=== PATIENT | male | born 1970 | race Caucasian/White ===

== ENCOUNTER 2017-06-12 15:57 | Inpatient (IN) ==
[2017-06-12] MEDS ORDERED: *HR* FentaNYL (PF) 100 MCG/2 ML VIAL IVP ONE (16:37)
[2017-06-12] MEDS ORDERED: Ondansetron ODT 4 MG TAB.RAPDIS SL ONE (16:37)
[2017-06-12] MEDS ORDERED: 0.9 % Sodium Chloride 1,000 ML IVC ONE (16:37)
--- NOTE | 2017-06-12 16:38 | Emergency Department Note ---
Disposition Clinical Impression: Gross hematuria, Supratherapeutic INR Disposition: Admitted As Inpatient Condition: Good Referrals: NONE,PCP [Primary Care Provider] - Forms: ED Satisfaction Letter Time of Disposition: 19:26 General Adult HPI - General Chief complaint: ED Urogenital-Male Stated complaint: Possible infection LUE, urinating blood Time Seen by Provider: 06/12/17 16:13 Source: patient Limitations: no limitations Nursing Notes Reviewed: Yes Vital Signs Reviewed: Yes - History of Present Illness HPI Narrative: Mr. 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 He reports only symptoms started approximately 2 days ago. Patient is currently on Coumadin therapy for his valve replacements. He reports that his low back pain is bilateral and sharp in nature. He denies any abdominal pain or change in his bowel movements. He reports that over the last 48 hours his urine has progressively diminished and has had difficulty urinating. He is reported progressively worsening gross hematuria as well. In regards to his left upper extremity, he reports that he is working on a shed at over last several weeks using sheets of metal. He reports that he has been gliding his left upper extremity across the causing several small lacerations. Over the last 2 days, he reports that he has been experiencing ecchymosis and edema about his left wrist and volar forearm. He reports that he has been unable to hold his coffee cup in the morning and has a decreased range of motion with his fingers. No recent infections and denies any fever at this time. No other complaints. Pain Scale: 6 - Related Data Home Medications Medication Instructions Recorded Confirmed Albuterol Sulfate [Ventolin Hfa] 8 gm IH Q6H PRN 03/26/15 03/24/17 Atorvastatin [Lipitor] 40 mg PO HS 03/26/15 03/24/17 Budesonide/Formoterol 160/4.5 1 puff IH DAILY 03/26/15 03/24/17 [Symbicort 160/4.5] Isosorbide MONOnitrate (24 HR) 60 mg PO DAILY 03/26/15 03/24/17 [Imdur] Metoprolol [Lopressor] 12.5 mg PO BID 03/26/15 03/24/17 Omeprazole [PriLOSEC] 20 mg PO DAILY 03/26/15 03/24/17 Oxazepam [Serax] 10 mg PO BID 03/26/15 03/24/17 Tamsulosin [Flomax] 0.4 mg PO DAILY 03/26/15 03/24/17 Vitamin B Complex [B Complex] 1 each PO DAILY 03/26/15 03/24/17 Warfarin [Coumadin] 5 mg PO QTUTHSA 03/26/15 03/24/17 Enoxaparin [Lovenox] 80 mg SQ Q12HR 03/24/17 03/24/17 Gabapentin [Neurontin] 600 mg PO BID 03/24/17 03/24/17 Montelukast [Singulair] 10 mg PO HS 03/24/17 03/24/17 Sertraline [Zoloft] 50 mg PO DAILY 03/24/17 03/24/17 Ubidecarenone [Co Q-10] 100 mg PO DAILY 03/24/17 03/24/17 traZODone [TraZODone] 50 mg PO HS 03/24/17 03/24/17 Allergies Allergy/AdvReac Type Severity Reaction Status Date / Time No Known Allergies Allergy Unverified 10/03/14 23:52 Review of Systems: Constitutional: No fever Vision: No blurred vision ENT: No rhinorrhea Respiratory: No cough Cardiovascular: No chest pain Allergic: No allergies : No blood in urine GI: No blood in stool Hematologic: No bruising Dermatologic: No skin rash Musculoskeletal: No pain in the extremities Neuro: No numbness of the extremities Past Medical History - Past Medical History Medical history: Reports: COPD, CVA, valvular heart disease Psychiatric history: Reports: anxiety, depression - Social History Smoking Status: Current every day smoker Smokeless Tobacco Status: Yes Alcohol use: Reports: none Drug use: Reports: none Physical Exam CONSTITUTIONAL: Alert and oriented X3 in no apparent distress HEAD: Normocephalic; atraumatic. RESP: NRD without use of accessory musculature, CTA b/l with no wheezes/rales/ rhonchi CARD: Regular rhythm, without murmurs, rubs, or gallop ABD: grossly normal, soft, non-tender, no guarding/distention/rigidity. surgical scars present BACK: no CVA tenderness SKIN: LUE: Multiple excoriations about left volar forearm, as well as approximately 3 cm x 4 cm area of ecchymosis and edema about the distal volar forearm. Fingers are held in slight flexion without any fusiform edema, tenderness about flexor compartment EXT: LUE is distally neurovascularlly intact PSYCH: appropriate mood/affect - General Limitations: no limitations General appearance: alert, in no apparent distress Course Course Narrative: Patient seen and examined at bedside. Vital signs were reviewed and normal. Will begin workup for low back pain the presence of gross hematuria to include a UA, abd/pelvic CT with and without, CBC, CMP, lipase and PT/INR. In addition , I am suspicious for flexor tenosynovitis and will order ESR, CRP, CPK and CT LUE with IV. Initial labs show mild leukocytosis of 12.3. Urine shows blood without infection. INR came back at 11.7. Recent history of Levaquin therapy and he reports not checking his INR routinely for the 2-3 weeks. Gave 10mg Vit K and Type and screen ordered. No evidence of active bleeding or hemodynamic instability. Scans pending at this time. Analagesic provided and patient is comfortable. 1915: Abdominal/pelvic CT demonstrates cholelithiasis without evidence of acute cholecystitis. No other acute changes were seen. There is evidence of renal stone passage even for changes seen on the ureters. CT of the upper extremity demonstrates no fluid collection, cellulitis, tenosynovitis. We will proceed with IV vancomycin for broad coverage and admit patient for supratherapeutic INR. 192: Spoke with Dr. Dotson except the patient for admission. I commended continuation of IVF 100 mL per hour. Patient understands and agrees to plan. Vital Signs Temperature 99.2 F 06/12/17 16:06 Pulse Rate 88 06/12/17 16:06 Respiratory Rate 18 06/12/17 16:06 Blood Pressure 134/87 06/12/17 16:06 O2 Sat by Pulse Oximetry 95 06/12/17 16:06 Temperature 99.2 F 06/12/17 16:06 Pulse Rate 88 06/12/17 16:06 Respiratory Rate 18 06/12/17 16:06 Blood Pressure 134/87 06/12/17 16:06 O2 Sat by Pulse Oximetry 95 06/12/17 16:06 Oxygen Delivery Oxygen Delivery Room Air Medical Decision Making - Lab Data Result diagrams: 06/12/17 16:44 06/12/17 16:44 Lab Results 06/12/17 06/12/17 06/12/17 Range/Units 16:20 16:44 16:44 WBC 12.4 H (4.3-11.1) K/mcL RBC 3.99 L (4.19-5.50) M/mcL Hgb 12.3 L (12.9-16.9) g/dL Hct 36.4 L (37.5-50.1) % MCV 91.2 (83.0-100.0) fL MCH 30.8 (28.0-33.3) pg MCHC 33.8 (31.6-35.5) g/dL RDW 14.4 (11.5-14.5) % Plt Count 199 (140-400) K/mcL MPV 12.8 H (9.4-12.4) fL Immature Gran % 0.3 (0-4) % Seg Neutrophils % 76.8 % Lymphocytes % 11.5 % Monocytes % 9.5 % Eosinophils % 1.6 % Basophils % 0.3 % Neutrophils # 9.5 H (1.6-8.9) K/mcL Lymphocytes # 1.4 (0.6-4.6) K/mcL Monocytes # 1.2 (0.0-1.3) K/mcL Eosinophils # 0.2 (0.0-0.6) K/mcL Basophils # 0.0 (0.0-0.2) K/mcL ESR 44 H (0-10) mm/hr PT (9.4-12.1) Seconds INR Sodium (136-145) mEq/L Potassium (3.5-5.1) mEq/L Chloride (98-107) mEq/L Carbon Dioxide (23-29) mEq/L BUN (6-20) mg/dL Creatinine (0.70-1.30) mg/dL Est GFR ( Amer) (> 60) Est GFR (Non-Af Amer) (> 60) BUN/Creatinine Ratio (6-26) Glucose (70-105) mg/dL Calculated Osmolality (280-300) Calcium (8.6-10.3) mg/dL Total Bilirubin (0.3-1.0) mg/dL AST (13-39) Units/L ALT (7-52) Units/L Alkaline Phosphatase (34-104) Units/L Creatine Kinase (30-223) Units/L C-Reactive Protein (Less than 10) mg/L Serum Total Protein (6.4-8.9) g/dL Albumin (3.5-5.7) g/dL Globulin (2.4-3.5) g/dL Albumin/Globulin Ratio (1.1-2.2) Lipase (11-82) Units/L Ur Specimen Adequacy Urine Color Red A (Yellow) Urine Clarity Cloudy A (Clear) Urine pH 6.0 (5.0-8.0) pH Units Ur Specific [place] 1.019 (1.010-1.025) Urine Protein 100 H (Neg-Trace) mg/dL Urine Glucose (UA) Normal (Normal) mg/dL Urine Ketones Negative (Negative) mg/dL Urine Blood Large H (Negative) Urine Nitrite Negative (Negative) Urine Bilirubin Negative (Negative) Urine Urobilinogen Normal (Normal) mg/dL Ur Leukocyte Esterase Negative (Negative) Blood Type Antibody Screen 06/12/17 06/12/17 06/12/17 Range/Units 16:44 16:44 18:38 WBC (4.3-11.1) K/mcL RBC (4.19-5.50) M/mcL Hgb (12.9-16.9) g/dL Hct (37.5-50.1) % MCV (83.0-100.0) fL MCH (28.0-33.3) pg MCHC (31.6-35.5) g/dL RDW (11.5-14.5) % Plt Count (140-400) K/mcL MPV (9.4-12.4) fL Immature Gran % (0-4) % Seg Neutrophils % % Lymphocytes % % Monocytes % % Eosinophils % % Basophils % % Neutrophils # (1.6-8.9) K/mcL Lymphocytes # (0.6-4.6) K/mcL Monocytes # (0.0-1.3) K/mcL Eosinophils # (0.0-0.6) K/mcL Basophils # (0.0-0.2) K/mcL ESR (0-10) mm/hr PT 132.8 H* (9.4-12.1) Seconds INR 11.7 H* Sodium 139 (136-145) mEq/L Potassium 4.0 (3.5-5.1) mEq/L Chloride 112 H (98-107) mEq/L Carbon Dioxide 24 (23-29) mEq/L BUN 10 (6-20) mg/dL Creatinine 0.92 (0.70-1.30) mg/dL Est GFR ( Amer) > 60 (> 60) Est GFR (Non-Af Amer) > 60 (> 60) BUN/Creatinine Ratio 11 (6-26) Glucose 120 H (70-105) mg/dL Calculated Osmolality 288 (280-300) Calcium 9.1 (8.6-10.3) mg/dL Total Bilirubin 0.8 (0.3-1.0) mg/dL AST 25 (13-39) Units/L ALT 23 (7-52) Units/L Alkaline Phosphatase 76 (34-104) Units/L Creatine Kinase 148 (30-223) Units/L C-Reactive Protein 56 H (Less than 10) mg/L Serum Total Protein 6.1 L (6.4-8.9) g/dL Albumin 3.5 (3.5-5.7) g/dL Globulin 2.6 (2.4-3.5) g/dL Albumin/Globulin Ratio 1.3 (1.1-2.2) Lipase 32 (11-82) Units/L Ur Specimen Adequacy Urine Color (Yellow) Urine Clarity (Clear) Urine pH (5.0-8.0) pH Units Ur Specific [place] (1.010-1.025) Urine Protein (Neg-Trace) mg/dL Urine Glucose (UA) (Normal) mg/dL Urine Ketones (Negative) mg/dL Urine Blood (Negative) Urine Nitrite (Negative) Urine Bilirubin (Negative) Urine Urobilinogen (Normal) mg/dL Ur Leukocyte Esterase (Negative) Blood Type A POSITIVE Antibody Screen NEGATIVE Attestation Statement - Attestation Attestation: I, Amrik Garcia DO, examined this patient [id number] and my medical decision-making was reviewed with Lloyd Caldwell PGY-1, Resident Physician. I agree with the documented findings, disposition and treatment plan as described except to the extent set forth below. Please see my progress notes for details.
[2017-06-12 16:56] LABS: Basophils % 0.3 %; Eosinophils # 0.2 K/mcL (0.0-0.6); Eosinophils % 1.6 %; Hematocrit 36.4 % (37.5-50.1); Hemoglobin 12.3 g/dL (12.9-16.9); Immature Granulocytes % 0.3 % (0-4); Lymphocytes # 1.4 K/mcL (0.6-4.6); Lymphocytes % 11.5 %; Mean Corpuscular HGB Conc 33.8 g/dL (31.6-35.5); Mean Corpuscular Hemoglobin 30.8 pg (28.0-33.3); Mean Corpuscular Volume 91.2 fL (83.0-100.0); Mean Platelet Volume 12.8 fL (9.4-12.4); Monocytes # 1.2 K/mcL (0.0-1.3); Monocytes % 9.5 %; Neutrophils # 9.5 K/mcL (1.6-8.9); Platelet Count 199 K/mcL (140-400); Red Blood Count 3.99 M/mcL (4.19-5.50); Red Cell Distribution Width 14.4 % (11.5-14.5); Segmented Neutrophils % 76.8 %
[2017-06-12 16:57] LABS: Bilirubin,Urine Negative (Negative); Blood,Urine Large (Negative); Clarity,Urine Cloudy (Clear); Glucose,Urine (UA) Normal (Normal); Ketones,Urine Negative (Negative); Leukocyte Esterase,Urine Negative (Negative); Nitrite,Urine Negative (Negative); Protein,Urine 100 mg/dL (Neg-Trace); Specific Gravity,Urine 1.019 (1.010-1.025); Urobilinogen,Urine Normal (Normal)
[2017-06-12 16:58] LABS: Color,Urine Red (Yellow)
[2017-06-12 17:14] LABS: INR 11.7; Prothrombin Time 132.8 Seconds (9.4-12.1)
[2017-06-12 17:21] LABS: Alanine Aminotransferase 23 Units/L (7-52); Albumin 3.5 g/dL (3.5-5.7); Albumin/Globulin Ratio 1.3 (1.1-2.2); Alkaline Phosphatase 76 Units/L (34-104); Aspartate Amino Transferase 25 Units/L (13-39); BUN/Creatinine Ratio 11 (6-26); Bilirubin,Total 0.8 mg/dL (0.3-1.0); Blood Urea Nitrogen 10 mg/dL (6-20); C-Reactive Protein 56 mg/L (Less than 10); Calcium 9.1 mg/dL (8.6-10.3); Carbon Dioxide 24 mEq/L (23-29); Chloride 112 mEq/L (98-107); Globulin 2.6 g/dL (2.4-3.5); Glucose 120 mg/dL (70-105); Lipase 32 Units/L (11-82); Osmolality,Calculated 288 (280-300); Sodium 139 mEq/L (136-145); Total Protein 6.1 g/dL (6.4-8.9); eGFR For African Americans > 60 (> 60); eGFR For Non-African Americans > 60 (> 60)
[2017-06-12 17:36] LABS: Creatine Kinase 148 Units/L (30-223)
--- NOTE | 2017-06-12 18:37 | Emergency Department Note ---
Disposition Clinical Impression: Gross hematuria, Supratherapeutic INR Disposition: Admitted As Inpatient Condition: Good Referrals: NONE,PCP [Non-Partnered Physician] - Forms: ED Satisfaction Letter Time of Disposition: 19:35 General Adult HPI - General Chief complaint: ED Urogenital-Male Stated complaint: Possible infection LUE, urinating blood Time Seen by Provider: 06/12/17 16:13 Source: patient Limitations: no limitations - History of Present Illness Pain Scale: 6 - Related Data Home Medications Medication Instructions Recorded Confirmed Albuterol Sulfate [Ventolin Hfa] 8 gm IH Q6H PRN 03/26/15 03/24/17 Atorvastatin [Lipitor] 40 mg PO HS 03/26/15 03/24/17 Budesonide/Formoterol 160/4.5 1 puff IH DAILY 03/26/15 03/24/17 [Symbicort 160/4.5] Isosorbide MONOnitrate (24 HR) 60 mg PO DAILY 03/26/15 03/24/17 [Imdur] Metoprolol [Lopressor] 12.5 mg PO BID 03/26/15 03/24/17 Omeprazole [PriLOSEC] 20 mg PO DAILY 03/26/15 03/24/17 Oxazepam [Serax] 10 mg PO BID 03/26/15 03/24/17 Tamsulosin [Flomax] 0.4 mg PO DAILY 03/26/15 03/24/17 Vitamin B Complex [B Complex] 1 each PO DAILY 03/26/15 03/24/17 Warfarin [Coumadin] 5 mg PO QTUTHSA 03/26/15 03/24/17 Enoxaparin [Lovenox] 80 mg SQ Q12HR 03/24/17 03/24/17 Gabapentin [Neurontin] 600 mg PO BID 03/24/17 03/24/17 Montelukast [Singulair] 10 mg PO HS 03/24/17 03/24/17 Sertraline [Zoloft] 50 mg PO DAILY 03/24/17 03/24/17 Ubidecarenone [Co Q-10] 100 mg PO DAILY 03/24/17 03/24/17 traZODone [TraZODone] 50 mg PO HS 03/24/17 03/24/17 Allergies Allergy/AdvReac Type Severity Reaction Status Date / Time No Known Allergies Allergy Unverified 10/03/14 23:52 Past Medical History - Past Medical History Medical history: Reports: COPD, CVA, valvular heart disease Psychiatric history: Reports: anxiety, depression - Social History Smoking Status: Current every day smoker Smokeless Tobacco Status: Yes Alcohol use: Reports: none Drug use: Reports: none Physical Exam - General Limitations: no limitations General appearance: alert, in no apparent distress Course Vital Signs Temperature 99.2 F 06/12/17 16:06 Pulse Rate 88 06/12/17 16:06 Respiratory Rate 18 06/12/17 16:06 Blood Pressure 134/87 06/12/17 16:06 O2 Sat by Pulse Oximetry 95 06/12/17 16:06 Temperature 99.2 F 06/12/17 16:06 Pulse Rate 88 06/12/17 16:06 Respiratory Rate 18 06/12/17 16:06 Blood Pressure 134/87 06/12/17 16:06 O2 Sat by Pulse Oximetry 95 06/12/17 16:06 Oxygen Delivery Oxygen Delivery Room Air Medical Decision Making - Lab Data Result diagrams: 06/12/17 16:44 06/12/17 16:44 Lab Results 06/12/17 06/12/17 06/12/17 Range/Units 16:20 16:44 16:44 WBC 12.4 H (4.3-11.1) K/mcL RBC 3.99 L (4.19-5.50) M/mcL Hgb 12.3 L (12.9-16.9) g/dL Hct 36.4 L (37.5-50.1) % MCV 91.2 (83.0-100.0) fL MCH 30.8 (28.0-33.3) pg MCHC 33.8 (31.6-35.5) g/dL RDW 14.4 (11.5-14.5) % Plt Count 199 (140-400) K/mcL MPV 12.8 H (9.4-12.4) fL Immature Gran % 0.3 (0-4) % Seg Neutrophils % 76.8 % Lymphocytes % 11.5 % Monocytes % 9.5 % Eosinophils % 1.6 % Basophils % 0.3 % Neutrophils # 9.5 H (1.6-8.9) K/mcL Lymphocytes # 1.4 (0.6-4.6) K/mcL Monocytes # 1.2 (0.0-1.3) K/mcL Eosinophils # 0.2 (0.0-0.6) K/mcL Basophils # 0.0 (0.0-0.2) K/mcL ESR 44 H (0-10) mm/hr PT (9.4-12.1) Seconds INR Sodium (136-145) mEq/L Potassium (3.5-5.1) mEq/L Chloride (98-107) mEq/L Carbon Dioxide (23-29) mEq/L BUN (6-20) mg/dL Creatinine (0.70-1.30) mg/dL Est GFR ( Amer) (> 60) Est GFR (Non-Af Amer) (> 60) BUN/Creatinine Ratio (6-26) Glucose (70-105) mg/dL Calculated Osmolality (280-300) Calcium (8.6-10.3) mg/dL Total Bilirubin (0.3-1.0) mg/dL AST (13-39) Units/L ALT (7-52) Units/L Alkaline Phosphatase (34-104) Units/L Creatine Kinase (30-223) Units/L C-Reactive Protein (Less than 10) mg/L Serum Total Protein (6.4-8.9) g/dL Albumin (3.5-5.7) g/dL Globulin (2.4-3.5) g/dL Albumin/Globulin Ratio (1.1-2.2) Lipase (11-82) Units/L Ur Specimen Adequacy Urine Color Red A (Yellow) Urine Clarity Cloudy A (Clear) Urine pH 6.0 (5.0-8.0) pH Units Ur Specific [place] 1.019 (1.010-1.025) Urine Protein 100 H (Neg-Trace) mg/dL Urine Glucose (UA) Normal (Normal) mg/dL Urine Ketones Negative (Negative) mg/dL Urine Blood Large H (Negative) Urine Nitrite Negative (Negative) Urine Bilirubin Negative (Negative) Urine Urobilinogen Normal (Normal) mg/dL Ur Leukocyte Esterase Negative (Negative) Blood Type Antibody Screen 06/12/17 06/12/17 06/12/17 Range/Units 16:44 16:44 18:38 WBC (4.3-11.1) K/mcL RBC (4.19-5.50) M/mcL Hgb (12.9-16.9) g/dL Hct (37.5-50.1) % MCV (83.0-100.0) fL MCH (28.0-33.3) pg MCHC (31.6-35.5) g/dL RDW (11.5-14.5) % Plt Count (140-400) K/mcL MPV (9.4-12.4) fL Immature Gran % (0-4) % Seg Neutrophils % % Lymphocytes % % Monocytes % % Eosinophils % % Basophils % % Neutrophils # (1.6-8.9) K/mcL Lymphocytes # (0.6-4.6) K/mcL Monocytes # (0.0-1.3) K/mcL Eosinophils # (0.0-0.6) K/mcL Basophils # (0.0-0.2) K/mcL ESR (0-10) mm/hr PT 132.8 H* (9.4-12.1) Seconds INR 11.7 H* Sodium 139 (136-145) mEq/L Potassium 4.0 (3.5-5.1) mEq/L Chloride 112 H (98-107) mEq/L Carbon Dioxide 24 (23-29) mEq/L BUN 10 (6-20) mg/dL Creatinine 0.92 (0.70-1.30) mg/dL Est GFR ( Amer) > 60 (> 60) Est GFR (Non-Af Amer) > 60 (> 60) BUN/Creatinine Ratio 11 (6-26) Glucose 120 H (70-105) mg/dL Calculated Osmolality 288 (280-300) Calcium 9.1 (8.6-10.3) mg/dL Total Bilirubin 0.8 (0.3-1.0) mg/dL AST 25 (13-39) Units/L ALT 23 (7-52) Units/L Alkaline Phosphatase 76 (34-104) Units/L Creatine Kinase 148 (30-223) Units/L C-Reactive Protein 56 H (Less than 10) mg/L Serum Total Protein 6.1 L (6.4-8.9) g/dL Albumin 3.5 (3.5-5.7) g/dL Globulin 2.6 (2.4-3.5) g/dL Albumin/Globulin Ratio 1.3 (1.1-2.2) Lipase 32 (11-82) Units/L Ur Specimen Adequacy Urine Color (Yellow) Urine Clarity (Clear) Urine pH (5.0-8.0) pH Units Ur Specific [place] (1.010-1.025) Urine Protein (Neg-Trace) mg/dL Urine Glucose (UA) (Normal) mg/dL Urine Ketones (Negative) mg/dL Urine Blood (Negative) Urine Nitrite (Negative) Urine Bilirubin (Negative) Urine Urobilinogen (Normal) mg/dL Ur Leukocyte Esterase (Negative) Blood Type A POSITIVE Antibody Screen NEGATIVE Attestation Statement - Attestation Attestation: I, Amrik Garcia DO, examined this patient [id number] and my medical decision-making was reviewed with Lloyd Caldwell PGY-1 Resident Physician. I agree with the documented findings, disposition and treatment plan as described except to the extent set forth below. Please see my progress notes for details. 39-year-old male presents to emergency room with complaint of left arm pain swelling and blood in his urine. 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 Patient is chronically disabled secondary to this. He has been working on trying to build the carotids. He said last several days has noticed generalized malaise muscle aches some swelling across his entire body as well as dark colored urine that he thought was blood. Patient denies any trauma or injury. He has not fallen or injured his arm. He is concerned, liver swelling and redness to the left arm is different from the right. He has appropriate palpable radial pulses are symmetric bilaterally. He does have discomfort with extension of the elbow and the fingers of the left hand. There is no gross deformity or injury noted at this point. Sensation is intact and symmetrical bilaterally. Patient's lungs are clear heart is regular abdomen is soft nontender nondistended no guarding no rigidity no peritoneal symptoms. Imaging modalities at the left upper extremity as well as the abdomen will be ordered at this point. No antibiotic regimen will be started this time. INR will be collected secondary to the patient's history of being on blood thinners. Vital signs remain stable. Detailed evaluation antibiotics were started as needed. Patient is otherwise currently stable. Lungs are clear heart is regular. Disposition pending the full workup and treatment course. Expect the patient will most likely need admission secondary to the hematuria and left zahra Ellison's clinical findings are not concerning at that point. See detailed documentation of the physical exam, medical intervention, medical decision-making and disposition in the resident physician's note. 1835 Patient has an INR greater than 11 at this point. Vitamin K will be started. CT imaging left upper extremity and abdomen are still pending at this point. Labs do show slight elevated white count and neutrophil. Otherwise patient is clinically stable. Disposition will be admission the hospital for stabilization of his elevated INR. No critical care applied to this patient's treatment course at this time 1930 Patient is clinically stable this time. CT imaging of the arm is concerning for possible cellulitis. Antibiotic regimen started in emergency room and vancomycin. Patient was given vitamin K. He will be admitted for further evaluation and management of the hypocoagulable state secondary to the INR. Patient is otherwise currently stable with no acute signs of GI bleed or bleeding diaphysis at this time. Hospitalist was paged no other recommendations are concerning this time.
[2017-06-12] MEDS: 0.9 % Sodium Chloride 1,000 ML IVC SCH (20:18)
[2017-06-12] MEDS ORDERED: *HR* HYDROcodone/Acet 5/325 mg TABLET PO PRN (20:36)
[2017-06-12] MEDS ORDERED: Acetaminophen 325 MG TABLET PO PRN (20:36)
[2017-06-12] MEDS ORDERED: Naloxone 0.4 MG/ML INJ IVP PRN (20:36)
--- NOTE | 2017-06-12 20:49 | Internal Med History&Physical ---
Date of Encounter: 06/12/17 Time of Encounter: 20:00 Internal Medicine - H&P: HPI Chief complaint: Hematuria and left forearm swelling Admitted From: Home Plans for Post Hospital Care: Home History of present illness: Mr. Dumont is a 47 year old male presented to ER for hematuria and left forearm swelling for 2 days. Past medical history is significant for S/P aortic and mitral replacement on Coumadin, history of CVA. Patient said she has noticed that gross hematuria since 2 days ago. With bilateral lower back pain. The hematuria is thick earlier and getting school office manager now. Patient denies fever, nausea, or vomiting. Patient also complains left arm swelling and pain since 2 days ago, no skin redness or warmth. The pain is 2 /10. There is some bruise on the wrist area. In the emergency room, he was found supratherapeutic INR at 11.7. CT abdominal and left forearm unremarkable. Patient was admitted for further management. Past Med Surg Social Fam HX - Past Medical History Medical history: COPD, CVA, valvular heart disease Psychiatric history: anxiety, depression - Social History Smoking Status: Current every day smoker Smokeless Tobacco Status: Yes Alcohol use: none Drug use: none - Family History Mother History Unknown: Yes Internal Medicine - H&P: Meds Albuterol Sulfate [Ventolin Hfa] 8 gm IH Q6H PRN 03/26/15 [History] Atorvastatin [Lipitor] 40 mg PO HS 03/26/15 [History] Budesonide/Formoterol 160/4.5 [Symbicort 160/4.5] 1 puff IH DAILY 03/26/15 [ History] Isosorbide MONOnitrate (24 HR) [Imdur] 60 mg PO DAILY 03/26/15 [History] Metoprolol [Lopressor] 12.5 mg PO BID 03/26/15 [History] Omeprazole [PriLOSEC] 20 mg PO DAILY 03/26/15 [History] Oxazepam [Serax] 10 mg PO BID 03/26/15 [History] Tamsulosin [Flomax] 0.4 mg PO DAILY 03/26/15 [History] Vitamin B Complex [B Complex] 1 each PO DAILY 03/26/15 [History] Warfarin [Coumadin] 5 mg PO QTUTHSA 03/26/15 [History] Enoxaparin [Lovenox] 80 mg SQ Q12HR 03/24/17 [History] Gabapentin [Neurontin] 600 mg PO BID 03/24/17 [History] Montelukast [Singulair] 10 mg PO HS 03/24/17 [History] Sertraline [Zoloft] 50 mg PO DAILY 03/24/17 [History] Ubidecarenone [Co Q-10] 100 mg PO DAILY 03/24/17 [History] traZODone [TraZODone] 50 mg PO HS 03/24/17 [History] 3 Allergy/AdvReac Type Severity Reaction Status Date / Time No Known Allergies Allergy Unverified 10/03/14 23:52 All Systems PM: A 10-system review of systems was performed and is negative for pertinent findings except as documented above in the HPI. - Constitutional Vitals: Temp Pulse Resp BP Pulse Ox 99.2 F 88 18 134/87 95 06/12/17 16:06 06/12/17 16:06 06/12/17 16:06 06/12/17 16:06 06/12/17 16:06 General appearance: Present: A&O X 3, no acute distress, answers questions appropriately - Head Head exam: Present: atraumatic, normocephalic - Eye Eye exam: Present: PERRL, conjuntiva pink, sclera anicteric Pupils: Present: PERRL - Neck Neck exam general surgery: Present: supple, trachea midline. Absent: lymphadenopathy - Respiratory Respiratory exam: Present: CTAB. Absent: accessory muscle use, rales, rhonchi, wheezes - Cardiovascular Cardiovascular exam: Present: RRR, +S1, +S2. Absent: diastolic murmur, gallop, rubs, systolic murmur - GI/Abdominal GI/Abdominal exam: Present: normal bowel sounds, soft, no peritoneal signs. Absent: distended, tenderness - Extremities Exam Extremities exam: Present: warm, radial pulses palpable and symmetrical. Absent : calf tenderness, cyanotic, pedal edema Additional comments: Left forearm swelling, tender, no obvious skin redness. Radical pulse 2+. Capillary refill on the nail bed wnl. - Neurological Exam Neurological exam: Present: CN II-XII intact, oriented X3, no focal deficits. Absent: pronater drift, facial droop, speech deficit - Skin Skin exam: Present: dry, intact Internal Med - H&P Results - Labs CBC & Chem 7: 06/12/17 16:44 06/12/17 16:44 Labs: Short CBC 06/12/17 Range/Units 16:44 WBC 12.4 H (4.3-11.1) K/mcL Hgb 12.3 L (12.9-16.9) g/dL Hct 36.4 L (37.5-50.1) % Plt Count 199 (140-400) K/mcL Neutrophils # 9.5 H (1.6-8.9) K/mcL BMP 06/12/17 16:44 Sodium 139 Potassium 4.0 Chloride 112 H Carbon Dioxide 24 BUN 10 Creatinine 0.92 Glucose 120 H Calcium 9.1 Liver Function 06/12/17 Range/Units 16:44 Total Bilirubin 0.8 (0.3-1.0) mg/dL AST 25 (13-39) Units/L ALT 23 (7-52) Units/L Alkaline Phosphatase 76 (34-104) Units/L Albumin 3.5 (3.5-5.7) g/dL Urine 06/12/17 Range/Units 16:20 Urine Color Red A (Yellow) Urine Clarity Cloudy A (Clear) Urine pH 6.0 (5.0-8.0) pH Units Ur Specific [place] 1.019 (1.010-1.025) Urine Protein 100 H (Neg-Trace) mg/dL Urine Glucose (UA) Normal (Normal) mg/dL - Impressions ITS Impressions Abdomen/Pelvis CT 06/12/17 16:33 IMPRESSION: Cholelithiasis. No evidence of acute cholecystitis. No renal or ureteral stone. Mild urothelial thickening and inflammation bilaterally, slightly greater on the right. No filling defect noted on excretory phase. Findings may be related to recent passage of stone or infection. Correlate with urinalysis. D/ / Lela Obrien MD / Lela Obrien MD Interpreting Provider: Lela Obrien MD Upper Extremity CT 06/12/17 16:35 IMPRESSION: 1. Mild subcutaneous edema involving the soft tissues of the forearm which is nonspecific. No organized drainable fluid collection identified. 2. Likely minimal fluid within the flexor tendon sheath. No definite tenosynovitis within limits of CT examination. 3. No acute osseous abnormality. D/ / Eulogio Meek MD / Eulogio Meek MD Interpreting Provider: Eulogio Meek MD - Assessment and plan (1) Pain and swelling of left forearm Current Visit: Yes Status: Acute Assessment and plan: Patient has pain and the swelling of left forearm. There is bruise on the wrist area. Pt has supratherapeutic INR. Consider inner bleeding. CT forearm shows no obvious hematoma. - Closely monitor pt, if symptoms getting worse, need to r/o compartment syndrome. At this point, pulse and capiliary refill is fine and pt move fingers w/o limitation. - Will correct supratherapeutic INR with vit K and FFP. Closely f/u INR level. - Consider orthopedic consult if symptoms persist. (2) DVT prophylaxis Current Visit: Yes Status: Acute Assessment and plan: Pt is on coumadin. INR is supratherapeutic (3) Gross hematuria Current Visit: Yes Status: Acute Assessment and plan: Pt has gross hematuria with supratherapeutic INR. CT abd shows no renal stone but suspect recent passed stone. UA shows negative for UTI. - Correct supratherapeutic INR - Hematuria improved now, H/H stable, cont closely monitor pt. (4) Supratherapeutic INR Current Visit: Yes Status: Acute Assessment and plan: Pt is on coumadin for valve replacement. Hold coumadin, FFP and vit K. F/U INR levels. (5) H/O mitral valve replacement Current Visit: No Status: Acute (6) H/O mitral valve repair Current Visit: No Status: Acute - Time Spent With Patient Total time spent is greater than 50% in coordination of care (as documented) at patient's floor/unit and/or counseling patient: 40 min Greater than 35 minutes
[2017-06-12] MEDS: traZODone 50 MG TABLET PO SCH (21:45)
[2017-06-13] MEDS: traZODone 50 MG TABLET PO SCH (01:07)
[2017-06-13] MEDS: Gabapentin 300 MG CAPSULE PO SCH ×3 (01:08→21:36)
[2017-06-13] MEDS: Nicotine 21 MG PATCH.TD24 TD SCH ×2 (01:10→09:18)
[2017-06-13 05:17] LABS: Basophils % 0.4 %; Eosinophils # 0.2 K/mcL (0.0-0.6); Eosinophils % 2.5 %; Hematocrit 32.8 % (37.5-50.1); Hemoglobin 10.9 g/dL (12.9-16.9); Immature Granulocytes % 0.4 % (0-4); Lymphocytes # 1.2 K/mcL (0.6-4.6); Lymphocytes % 14.5 %; Mean Corpuscular HGB Conc 33.2 g/dL (31.6-35.5); Mean Corpuscular Hemoglobin 30.6 pg (28.0-33.3); Mean Corpuscular Volume 92.1 fL (83.0-100.0); Mean Platelet Volume 12.5 fL (9.4-12.4); Monocytes # 0.9 K/mcL (0.0-1.3); Monocytes % 10.9 %; Neutrophils # 5.9 K/mcL (1.6-8.9); Nucleated Red Blood Cells 0.2 /100 WBC (0); Platelet Count 167 K/mcL (140-400); Red Blood Count 3.56 M/mcL (4.19-5.50); Red Cell Distribution Width 14.4 % (11.5-14.5); Segmented Neutrophils % 71.3 %
[2017-06-13 05:24] LABS: INR 1.4; Prothrombin Time 15.1 Seconds (9.4-12.1)
[2017-06-13 05:35] LABS: BUN/Creatinine Ratio 14 (6-26); Blood Urea Nitrogen 9 mg/dL (6-20); Calcium 8.6 mg/dL (8.6-10.3); Carbon Dioxide 26 mEq/L (23-29); Chloride 110 mEq/L (98-107); Glucose 88 mg/dL (70-105); Magnesium 1.7 mg/dL (1.6-2.6); Osmolality,Calculated 294 (280-300); Potassium 3.7 mEq/L (3.5-5.1); Sodium 143 mEq/L (136-145); eGFR For African Americans > 60 (> 60); eGFR For Non-African Americans > 60 (> 60)
[2017-06-13] MEDS: Budesonide/Formoterol 160/4.5 MDI IH SCH (07:57)
[2017-06-13] MEDS: Isosorbide MONOnitrate (24 HR) 60 MG TAB.ER.24H PO SCH (09:17)
[2017-06-13] MEDS: 0.9 % Sodium Chloride 1,000 ML IVC SCH ×2 (09:18→21:35)
[2017-06-13] MEDS ORDERED: Magnesium Oxide 400 MG TABLET PO ONE (12:37)
--- NOTE | 2017-06-13 13:16 | Internal Med Progress Note ---
Date of Encounter: 06/13/17 Time of Encounter: 13:14 - Assessment and plan (1) Gross hematuria Current Visit: Yes Status: Acute Assessment and plan: This resolved after FFP's and vitamin K. We will monitor tonight and possibly discharge tomorrow. (2) H/O mitral valve repair Current Visit: No Status: Acute Assessment and plan: INR is subtherapeutic now. Patient has mechanical valve. Will need to be put on Lovenox therapeutic dose with bridging to Coumadin. He has no further hematuria now. We will monitor. (3) Supratherapeutic INR Current Visit: Yes Status: Acute Assessment and plan: patient is now subtherapeutic after FFP's and vitamin K. (4) Pain and swelling of left forearm Current Visit: Yes Status: Acute Assessment and plan: Resolved. No active bleeding seen on CAT scan. We will monitor. (5) DVT prophylaxis Current Visit: Yes Status: Acute Assessment and plan: will place the patient on Lovenox therapeutic dose with Coumadin bridge and - Time Spent With Patient Total time spent is greater than 50% in coordination of care (as documented) at patient's floor/unit and/or counseling patient: - Subjective Interval history: Patient was seen and examined. No acute events. Hematuria resolved. Patient has supratherapeutic INR which caused hematuria. Recently was on antibiotics and just finished a couple days ago. He is not sure which antibiotics he was on but he says he was prescribed by his PCP due to tendinitis. - Constitutional Vitals: Temp Pulse Resp BP Pulse Ox 97.4 F L 66 16 115/76 97 06/13/17 10:47 06/13/17 10:47 06/13/17 10:47 06/13/17 10:47 06/13/17 10:47 General appearance: Present: A&O X 3, no acute distress, answers questions appropriately Exam: GEN: NAD CVS: RRR. S1, S2, No m/r/g RESP: CTAB ABD: Soft, NT, ND, +BS EXT: No edema. 2+ DP. No rashes NEURO: Nonfocal Internal Medicine: Result - Labs CBC & Chem 7: 06/13/17 04:52 06/13/17 04:52 Labs: Short CBC 06/13/17 Range/Units 04:52 WBC 8.3 (4.3-11.1) K/mcL Hgb 10.9 L (12.9-16.9) g/dL Hct 32.8 L (37.5-50.1) % Plt Count 167 (140-400) K/mcL Neutrophils # 5.9 (1.6-8.9) K/mcL BMP 06/13/17 04:52 Sodium 143 Potassium 3.7 Chloride 110 H Carbon Dioxide 26 BUN 9 Creatinine 0.64 L Glucose 88 Calcium 8.6 - ABG Interpretation ABG results: PT/INR, D-dimer PT 15.1 Seconds (9.4-12.1) H D 06/13/17 04:52 Consult Discharge Plan - Plan Referrals: Krystal Youssef, [employer] D[employer]ER TENDER [Primary Care Provider] -
[2017-06-13] MEDS ORDERED: Warfarin perPT PO PRN (18:00)
[2017-06-13] MEDS ORDERED: *HR* Warfarin 5 MG TABLET PO SCH (18:00)
[2017-06-13] MEDS: *HR* Enoxaparin 80 MG/0.8 ML SYRINGE SQ SCH (18:01)
[2017-06-13] MEDS ORDERED: Benzocaine 20% 9 GM GEL..GRAM. TP PRN (21:55)
[2017-06-14 04:09] LABS: Basophils % 0.4 %; Eosinophils # 0.2 K/mcL (0.0-0.6); Eosinophils % 2.8 %; Hematocrit 30.9 % (37.5-50.1); Immature Granulocytes % 0.1 % (0-4); Lymphocytes # 1.4 K/mcL (0.6-4.6); Lymphocytes % 20.7 %; Mean Corpuscular HGB Conc 32.4 g/dL (31.6-35.5); Mean Corpuscular Hemoglobin 29.8 pg (28.0-33.3); Mean Platelet Volume 12.3 fL (9.4-12.4); Monocytes # 0.7 K/mcL (0.0-1.3); Monocytes % 10.3 %; Neutrophils # 4.5 K/mcL (1.6-8.9); Platelet Count 161 K/mcL (140-400); Red Blood Count 3.36 M/mcL (4.19-5.50); Red Cell Distribution Width 14.2 % (11.5-14.5); Segmented Neutrophils % 65.7 %
[2017-06-14 04:13] LABS: INR 1.2; Prothrombin Time 12.8 Seconds (9.4-12.1)
[2017-06-14 04:31] LABS: BUN/Creatinine Ratio 16 (6-26); Blood Urea Nitrogen 11 mg/dL (6-20); Calcium 8.3 mg/dL (8.6-10.3); Carbon Dioxide 26 mEq/L (23-29); Chloride 110 mEq/L (98-107); Glucose 89 mg/dL (70-105); Magnesium 1.7 mg/dL (1.6-2.6); Osmolality,Calculated 287 (280-300); Potassium 4.2 mEq/L (3.5-5.1); Sodium 139 mEq/L (136-145); eGFR For African Americans > 60 (> 60); eGFR For Non-African Americans > 60 (> 60)
[2017-06-14] MEDS: 0.9 % Sodium Chloride 1,000 ML IVC SCH (05:21)
[2017-06-14] MEDS: *HR* Enoxaparin 80 MG/0.8 ML SYRINGE SQ SCH (05:21)
[2017-06-14 07:16] VITALS: BP 139/78
[2017-06-14] MEDS: Budesonide/Formoterol 160/4.5 MDI IH SCH (07:35)
--- NOTE | 2017-06-14 08:11 | Discharge Summary ---
- NOTES TO OUTPATIENT PROVIDER Notes to Outpatient Provider: Patient had his INR reversed. Hematuria resolved. Due to mechanical valves, I started him on Lovenox and discharged him on it till his INR is therapeutic Date of Encounter: 06/14/17 Time of Encounter: 08:04 - Discharge Diagnosis (1) Gross hematuria Priority: Primary Status: Acute (2) H/O mitral valve repair Priority: Secondary Status: Acute (3) Supratherapeutic INR Priority: Primary Status: Acute (4) Pain and swelling of left forearm Priority: Primary Status: Acute Hospital course: Mr. Dumont is a 47 year old male presented to ER for hematuria and left forearm swelling for 2 days. Past medical history is significant for S/P mechanical aortic and mitral replacement on Coumadin, history of CVA. On initial evaluation the patient's INR was noted to be 11.7. Due to the hematuria he was given FFP's and vitamin K has INR went down to 1.4. His hematuria resolved by the following day. Hemoglobin remained around 10. Due to the fact that the patient has mechanical aortic and mitral valves I ended up starting the patient on a heparin drip after his hematuria had resolved and eventually discharged him on Lovenox with Coumadin bridging. It is unclear why the patient's INR was this high however he did mention that he was on antibiotics prescribed by his PCP and he finished a course of treatment 2 days prior to this admission for some tendinitis in the upper extremities. The patient was not sure which antibiotics it was. He was discharged in a stable condition on 06/14. He is to have INR checked in 3 days on 06/17. He was given a prescription for Lovenox for the next 7 days. INR on day of discharge was 1.2. CT abdomen and pelvis ruled out any acute pathology. His left upper extremity swelling had resolved by the next morning when I started seeing him. He did have a CT left upper extremity in the ED which showed some soft tissue swelling in the forearm but no fluid collection. - Time Spent with Patient Total time spent providing and/or coordinating discharge services: - Discharge Medications Prescriptions: Enoxaparin [Lovenox] 80 mg SQ Q12HR #14 syringe Home Medications: Albuterol Sulfate [Ventolin Hfa] 2 puff IH Q6H PRN 03/26/15 [History] Atorvastatin [Lipitor] 40 mg PO HS 03/26/15 [History] Budesonide/Formoterol 160/4.5 [Symbicort 160/4.5] 1 puff IH DAILY 03/26/15 [ History] Isosorbide MONOnitrate (24 HR) [Imdur] 60 mg PO DAILY 03/26/15 [History] Metoprolol [Lopressor] 12.5 mg PO BID 03/26/15 [History] Omeprazole [PriLOSEC] 20 mg PO DAILY 03/26/15 [History] Oxazepam [Serax] 10 mg PO BID 03/26/15 [History] Tamsulosin [Flomax] 0.4 mg PO DAILY 03/26/15 [History] Vitamin B Complex [B Complex] 1 each PO DAILY 03/26/15 [History] Warfarin [Coumadin] 5 mg PO DAILY 03/26/15 [History] Gabapentin [Neurontin] 600 mg PO BID 03/24/17 [History] Montelukast [Singulair] 10 mg PO HS 03/24/17 [History] Sertraline [Zoloft] 50 mg PO DAILY 03/24/17 [History] Ubidecarenone [Co Q-10] 100 mg PO DAILY 03/24/17 [History] traZODone [TraZODone] 50 mg PO HS 03/24/17 [History] Aspirin [Lo-Dose Aspirin EC] 81 mg PO DAILY 06/13/17 [History] Enoxaparin [Lovenox] 80 mg SQ Q12HR #14 syringe 06/14/17 [Rx] Allergies/Adverse Reactions: 3 Allergy/AdvReac Type Severity Reaction Status Date / Time No Known Allergies Allergy Unverified 10/03/14 23:52 Date of admission: 06/12/17 23:11 Primary care physician: Krystal Youssef CNP - Constitutional Vitals: Temp Pulse Resp BP Pulse Ox 98.5 F 65 22 139/78 95 06/14/17 07:06 06/14/17 07:06 06/14/17 07:06 06/14/17 07:06 06/13/17 19:26 General appearance: Present: A&O X 3, no acute distress, answers questions appropriately Exam: GEN: NAD CVS: RRR. S1, S2, No m/r/g RESP: CTAB ABD: Soft, NT, ND, +BS EXT: No edema. 2+ DP. No rashes NEURO: Nonfocal - Patient Status Disposition: Home, Self-Care Condition: Fair Overall status at discharge: patient is progressing back to baseline - Discharge Instructions Follow Up With: Krystal Youssef CNP [Primary Care Provider] - 06/21/17 1:00 pm (Please follow up as schedule...) - Diet and Activity Activity: increase activity as tolerated Diet: regular diet
[2017-06-14] MEDS: Gabapentin 300 MG CAPSULE PO SCH (09:12)
[2017-06-14] MEDS: Isosorbide MONOnitrate (24 HR) 60 MG TAB.ER.24H PO SCH (09:19)
[2017-06-14] MEDS: Nicotine 21 MG PATCH.TD24 TD SCH (09:23)
== END 2017-06-14 11:53 | disposition home or self-care (01) | DRG 813 ==
LOC: EMEROO 15:57 → 2ANU 15:57
PROVIDERS: ADMIT Internal Medicine; ATTEND Internal Medicine